=== PATIENT | female | born 1985 | race Caucasian/White ===

== ENCOUNTER 2016-05-15 23:24 | Emergency (ER) | payer OTHER ==
[~2016-05-15] VITALS: Ht 162.6 cm; Wt 60.5 kg
[2016-05-15 23:30] VITALS: Ht 162.6 cm; Wt 60.5 kg
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
[2016-05-16 00:09] LABS: ADD SCAN DIFF NO
[2016-05-16 00:12] LABS: BASOPHIL # 0.1 10^3/ul (0.0-0.1); BASOPHILS % 0.5 % (0.0-2.0); EOSINOPHILS # 0.3 10^3/ul (0.0-0.5); HEMOGLOBIN 11.8 g/dl (12.0-16.0); LYMPHOCYTES # 3.5 10^3/ul (0.8-2.9); LYMPHOCYTES % 31.4 % (15.0-51.0); MEAN CORPUSCULAR HEMOGLOBIN 29.2 pg (29.0-33.0); MEAN CORPUSCULAR HGB CONC 31.9 g/dl (32.0-37.0); MEAN CORPUSCULAR VOLUME 91.6 fl (82.0-101.0); MEAN PLATELET VOLUME 9.3 fl (7.4-10.4); MONOCYTE # 0.8 10^3/ul (0.3-0.9); MONOCYTES % 7.5 % (0.0-11.0); NEUTROPHIL # 6.5 10^3/ul (1.6-7.5); NEUTROPHILS % 57.3 % (39.0-77.0); PLATELET COUNT 398 10^3/UL (140-415); RED BLOOD COUNT 4.04 10^6/ul (4.20-5.40); RED CELL DISTRIBUTION WIDTH 13.2 % (11.5-14.5); WHITE BLOOD COUNT 11.3 10^3/ul (4.8-10.8)
[2016-05-16 00:22] LABS: ALBUMIN 4.7 g/dl (3.3-4.9); CHLORIDE 104 mmol/L (97-110)
[2016-05-16 00:23] LABS: POTASSIUM 3.9 mmol/L (3.5-5.1); SODIUM 141 mmol/L (135-144)
[2016-05-16 00:25] LABS: ANION GAP 18 (8-16); ASPARTATE AMINO TRANSFERASE 27 IU/L (15-46); BILIRUBIN,INDIRECT 0.3 mg/dl (0-1.1); BILIRUBIN,TOTAL 0.3 mg/dl (0.2-1.3); CARBON DIOXIDE 23 mmol/L (21-31); CREATININE 0.82 mg/dl (0.44-1.00); TOTAL PROTEIN 8.3 g/dl (6.1-8.1)
[2016-05-16 00:26] LABS: ALANINE AMINOTRANSFERASE 25 IU/L (13-69); ALKALINE PHOSPHATASE 69 IU/L (42-121); BLOOD UREA NITROGEN 12 mg/dl (7-20); CALCIUM 8.7 mg/dl (8.4-10.2); GLUCOSE 97 mg/dl (70-220)
[2016-05-16 00:27] LABS: ACETAMINOPHEN < 10.0 ug/ml (10.0-30.0); ETHANOL < 10.0 mg/dl; SALICYLATE < 1.0 mg/dl (5.0-30.0)
[2016-05-16 00:29] LABS: BARBITURATES Negative (NEGATIVE)
[2016-05-16 00:30] LABS: CANNABINOIDS Positive (NEGATIVE)
[2016-05-16 00:32] LABS: BENZODIAZEPINES Negative (NEGATIVE); COCAINE Negative (NEGATIVE); OPIATES Negative (NEGATIVE)
[2016-05-16] MEDS ORDERED: IBUPROFEN 600 MG TAB PO ONE (01:00)
--- NOTE | 2016-05-16 01:19 | RADRPT ---
PROCEDURE: XR Shoulder. CLINICAL INDICATION: Right shoulder pain. TECHNIQUE: Three views of the right shoulder. COMPARISON: None available FINDINGS: There is no acute fracture or dislocation. The joint spaces are preserved. The coracoclavicular in terval is normal. The visualized right lung is clear. IMPRESSION: 1. No acute fracture or dislocation of the right shoulder. RPTAT: HTAR .Sekou Reece MD, MD Date Time Electronically viewed and signed by .Sekou Reece MD, on 05/16/2016 01:18 .R/
== END 2016-05-16 01:45 ==
LOC: E/R 23:24
DX: S49.92XA Unspecified injury of left shoulder and upper arm, initial encounter (principal); R40.2142 Coma scale, eyes open, spontaneous, at arrival to emergency department; D64.9 Anemia, unspecified; R45.851 Suicidal ideations; R40.2252 Coma scale, best verbal response, oriented, at arrival to emergency department; R40.2362 Coma scale, best motor response, obeys commands, at arrival to emergency department; Y04.0XXA Assault by unarmed brawl or fight, initial encounter
CPT/HCPCS: 80053; 80306; 80307; 84703; 85025